=== PATIENT | male | born 1960 | race Caucasian/White ===

== ENCOUNTER 2016-08-05 09:48 | Day surgery (SDC) | payer OTHER ==
[~2016-08-05] VITALS: Ht 193 cm; Wt 158.8 kg
[~2016-08-05 09:48] MED LIST: 0.9% Sodium Chloride 1,000 ML IV PRN; ASPI-973 PO; LOSA50TA37 PO; METO-274 PO; Sodium Chloride LOK Flush 10 mL Syringe IV PRN; fentaNYL-PF 50 mCg/mL 2 mL Inj IVPUSH PRN
[2016-08-05 10:26] VITALS: BP 142/78; PULSE 96; RESP 14; O2SAT 98
[2016-08-05 11:42] VITALS: BP 150/82; PULSE 65; RESP 17; O2SAT 93
[2016-08-05 11:52] VITALS: BP 146/90; PULSE 63; RESP 17; O2SAT 95
[2016-08-05 12:03] VITALS: BP 111/69; PULSE 65; RESP 17; O2SAT 99
--- NOTE | 2016-08-06 09:23 | ENDO ---
[address] [address] ENDOSCOPY PROCEDURE PATIENT: POOJA WESTBROOK : 1960 MR#: [id number] ADMIT: 08/05/2016 JOB ID: [id number] DATE OF SERVICE: 08/06/2016 PROCEDURE PERFORMED: Colonoscopy. INDICATIONS: The patient with a history of serrated adenoma in the ascending colon. ASA CLASSIFICATION: The patient's ASA classification is II. MALLAMPATI SCORE: Mallampati score was 2. MEDICATIONS: 1. Versed 4 mg. 2. Fentanyl 100 mcg. INSTRUMENT USED: PCF-H180AL. PREPARATION QUALITY: Fair. PROCEDURE DETAILS: After informed consent was obtained, the patient was brought into the GI suite, where he was placed on oxygen via nasal cannula and monitored with continuous pulse oximeter, telemetry, and blood pressure monitoring. A time-out was performed. Then, he was placed in the left lateral decubitus position and medications were administered for sedation. Digital rectal exam with palpation of the prostate was performed which was unremarkable. The colonoscope was then inserted into the rectum and advanced under direct visualization to the cecum, which was identified by the presence of the ileocecal valve and appendiceal orifice. Once the cecum was reached, the colonoscope was withdrawn back into the rectum, as the mucosa and lumen were examined. In the rectum, retroflexion was performed. Following retroflexion, remaining air in the rectum was suctioned, and procedure was completed. FINDINGS: 1. Previously placed tattoo was identified in the ascending colon. The tattoo with relation to the scope position was at approximately 6 o'clock and the previously removed serrated adenoma was at approximately 11 o'clock. The site was inspected and there appeared to be a remnant of polyp overlying a fold. With Jumbo biopsy forceps we did remove the visualized portions of the polyp. 2. Just proximal to this, there was a diminutive polyp that was removed with a cold biopsy forceps. IMPRESSION: 1. Removal of remnant of previously partially removed polyp. 2. Ascending colon polyp. RECOMMENDATIONS: Repeat colonoscopy in two years. COMPLICATIONS: None. ESTIMATED BLOOD LOSS: Less than 5 mL. MTDD
--- NOTE | 2016-08-06 16:21 | PATH ---
SURGICAL PATHOLOGY Attending Physician:Ruben Tapia CASE STATUS: Signed Out PATIENT NAME: POOJA WESTBROOK PID: [id number] : 1960 DATE COLLECTED:08/05/2016 22:36 SPECIMEN: 1: Colon, Biopsy 2: Colon, Biopsy CLINICAL HISTORY: 1). ASCENDING POLYP X1 2). ASCENDING POLYP X1 FINAL DIAGNOSIS: 1. Ascending Colon Polyp x1: Small fragments of colonic mucosa with no diagnostic alterations. Negative for dysplasia and malignancy. 2. Ascending Polyp x1: Sessile serrated adenoma. ICD10: D12.2 GROSS DESCRIPTION: The specimen is received in two formalin filled containers labeled with the patient's name. 1). The specimen is labeled "#1 ascending #1 polyp" and consists of 3 portions of tissue which aggregate to 0.3 x 0.2 x 0.2 CM. And the specimen is entirely submitted in cassettes 1A. 2). The specimen is labeled "#2 ascending #2 polyp" and consists of multiple portions of tissue which aggregate to 0.6 0.6-0.3 CM. The specimen is entirely submitted in cassettes 2A. 08/05/2016 [facility] MICRO DESCRIPTION: Please see diagnosis. ICD-9 CODES: CPT CODES: 1: 40640 2: 62214 Electronically Signed Out Jaja Lombardo MD [facility] Pathology [facility] [address], [place] [address] Technical component performed at [facility], [address] [place] [address] Ave[address], [place], [address]
[2016-09-30] MEDS ORDERED: METO-274 PO (12:33)
[2016-09-30] MEDS ORDERED: LOSA50TA37 PO (12:33)
[2016-09-30] MEDS ORDERED: ASPI-973 PO (12:33)
== END 2016-08-05 23:59 | disposition home or self-care (01) ==
LOC: END 09:48
PROVIDERS: ATTEND Internal Medicine Gastroenterology
DX: Z12.11 Encounter for screening for malignant neoplasm of colon (principal); D12.2 Benign neoplasm of ascending colon; Z86.010 Personal history of colon polyps; I10 Essential (primary) hypertension; G47.33 Obstructive sleep apnea (adult) (pediatric); R35.0 Frequency of micturition; N40.1 Benign prostatic hyperplasia with lower urinary tract symptoms; E66.9 Obesity, unspecified; Z85.51 Personal history of malignant neoplasm of bladder; Z85.47 Personal history of malignant neoplasm of testis; Z92.3 Personal history of irradiation
CPT/HCPCS: 45380; 99153; G0500; J2250; J3010; J7030

== ENCOUNTER 2016-10-01 10:24 | Day surgery (SDC) | payer OTHER ==
[~2016-10-01] VITALS: Ht 193 cm; Wt 161.9 kg
[2016-10-01] VITALS (9 sets, daily range): BP systolic 114–140; BP diastolic 59–76; PULSE 64–118; RESP 13–16; O2SAT 94–98
[~2016-10-01 10:24] MED LIST changes: -0.9% Sodium Chloride 1,000 ML IV PRN; +Lactated Ringer's 1,000 ML IV SCH; +Levofloxacin 500 mg/100 mL D5W IV ONE; +Mitomycin Inj 40 MG in Syringe 1 EACH IRRIGATION ONE; -Sodium Chloride LOK Flush 10 mL Syringe IV PRN; -fentaNYL-PF 50 mCg/mL 2 mL Inj IVPUSH PRN
[2016-10-01] MEDS ORDERED: Dexamethasone 4 mg/mL Inj ONE (10:25)
[2016-10-01] MEDS ORDERED: Ondansetron 2 mg/mL 2 mL Inj ONE (10:25)
[2016-10-01] MEDS ORDERED: fentaNYL-PF 50 mCg/mL 2 mL Inj ONE (10:25)
[2016-10-01] MEDS ORDERED: Propofol 10,000 mCg/mL 20 mL Inj ONE (10:25)
[2016-10-01] MEDS ORDERED: MetoCLOpramide 5 mg/mL 2 mL Inj ONE (10:25)
[2016-10-01] MEDS ORDERED: Lactated Ringer's 1,000 ML IV ONE (11:45)
[2016-10-01] MEDS ORDERED: Belladonna Alk-Opium 60 mg Rectal Suppository RECTAL ONE ×2 (12:49→13:30)
[2016-10-01] MEDS ORDERED: Lactated Ringer's 1,000 ML IV SCH (12:54)
[2016-10-01] MEDS ORDERED: Lactated Ringer's 500 ML IV PRN (12:54)
[2016-10-01] MEDS ORDERED: Phenylephrine 10,000 mCg/mL Inj IVPUSH PRN (12:55)
[2016-10-01] MEDS ORDERED: Atropine 0.4 mg/mL Inj IVPUSH PRN (12:55)
[2016-10-01] MEDS ORDERED: Labetalol 5 mg/mL 4 mL Inj IV PRN (12:55)
[2016-10-01] MEDS ORDERED: EPHEDrine Sulfate 50 mg/mL Inj IVPUSH PRN (12:55)
[2016-10-01] MEDS ORDERED: Ondansetron 2 mg/mL 2 mL Inj IVPUSH PRN (12:55)
[2016-10-01] MEDS ORDERED: MetoCLOpramide 5 mg/mL 2 mL Inj IVPUSH PRN (12:55)
--- NOTE | 2016-10-01 13:14 | PCM.HPANE ---
Patient Data Surgeon Admitting Provider: Attending Provider:Dane Thompson MD Primary Care Physician:Mary Sarkar MD Other Provider:Michelle Peraltaingham Anesthesia Reason for Visit Bladder Tumor Ht/WT & BMI Height (Feet): 6 Height (Inches): 4 Weight (Kilograms): 164.84 Body Mass Index 44.00 Allergies Coded Allergies: lisinopril (Verified Adverse Reaction, Mild, cough, 08/05/16) Past Anesthesia History Anesthesia History: Denies:: Abnormal Airway, Anesthesia Reactions, Difficult Intubation, Fam Anesthesia Reaction, Fam Malignant Hypertherm, Malignant Hyperthermia Diabetes History Hx Diabetes?: No MRSA MRSA: No Medications Blood Thinner: Aspirin Hypertension Medication: Yes Home Meds Incl Beta Narcisa: Yes Reported Medications Metoprolol Succinate ER 100 Mg Tab.er.[id number] Mg PO DAILY Ref 0 09/30/16 Losartan Potassium 50 Mg Kosnme75 Mg PO DAILY 09/30/16 Aspirin 81 Mg Eiubjb69 Mg PO DAILY Ref 0 09/30/16 Discontinued Reported Medications Metoprolol Succinate ER 100 Mg Tab.er.68w254 Mg PO DAILY Ref 0 08/04/16 Losartan Potassium 50 Mg Zfpleb92 Mg PO DAILY 08/04/16 Aspirin 81 Mg Esnepf80 Mg PO DAILY Ref 0 01/08/16 History History of ENT Problems?: No HEENT History: Denies:: Abnormal Airway Difficult Intubation Dysphagia Hearing Problem Hx of Heart Problems?: Yes Cardiovascular History: Positive for:: Hypertension Denies:: AICD Atrial Fibrillation Chest Pain Pacemaker Valvular Heart Disease Hx of Respiratory Problem?: Yes Respiratory History: Positive for:: Pneumonia Use of C-PAP Machine Denies:: Asthma COPD Cough Hemoptysis Tuberculosis Hx Neurologic Problems?: No Neurological History: Denies:: CVA Multiple Sclerosis Parkinson's Disease Seizures TIA Hx of GI Problems?: Yes Gastrointestinal History: Denies:: Cirrhosis Diverticulitis Gastroesphageal Reflux Hiatal Hernia Rectal Bleeding Hx of Problems?: Yes Other Pertinent History: bladder tumor current admission problem Male Hx: Positive for:: Testicular Surgery (left testicular ca / resection) Denies:: Prostate Problems Skin History: Denies:: History Skin Disorders? Pressure Ulcers Hx Musculoskeletal Problems?: Yes Musculoskeletal History: Positive for:: Musculoskeletal Trauma (hx of left shoulder surgery) Hx of Psycho/Social Problems?: No Hx Surgeries?: Yes (L SHOULDER, L THUMB, COLONOSCOPY, TESTICULAR/BLADDER CA) Hx Any Other Health Problems?: Yes Other History: Positive for:: Cancer (testicular) Denies:: Endocrine Disease Hospitalization Thyroid Disease History Blood Transfusions: Denies:: Blood Transfusions Hx Diabetes: No Hx Alcohol Use: YesHx Substance Use: No Smoking Status: Former Smoker Have You Smoked inLast 12 mo: No (1994) Stop/Bang P-Blood Pressure: treated: Yes B- Body Mass Index > 35 kg/m2: Yes A- Age over 50: Yes N- Neck Large Circumference: Yes G- Gender Male: Yes Risk Assessment Category Category 1A: Patient has history of documented sleep apnea, and HAS NOT received any narcotic, sedative or anesthesia administration during this stay. Category 1B: Patient has history of documented sleep apnea, and HAS received any narcotic , sedative or anesthesia administration during this stay Category 2: Patient has SUSPECTED Obstructive Sleep Apnea, and HAS received any narcotic , sedative or anesthesia administration during this stay. Category 3: Patient has SUSPECTED Obstructive Sleep Apnea and HAS NOT received narcotic, sedative or anesthesia administration during this stay. Category 4: Outpatient in Procedural Areas with known sleep apnea or who screen positive for High Risk via the STOP/BANG questionnaire. Exam Exam General Appearance: Alert, Oriented X3, Cooperative, No Acute Distress HEENT/AIRWAY: MP 2, Neck Movement (FROM, large neck circumferene), Mouth Opening (3 FBMO) Lungs: Clear to Auscultation, Normal Air Movement Heart: Exam Unremarkable, Regular Rate/Rhythm, No Murmurs/Rubs/Gallops Plan Impression Patient chart reviewed, patient interviewed and anesthestic plan with risks, benefits, and alternatives discussed, and informed consent obtained. NPO Status: > 8 hrs ASA Physical Status: ASA3 Severe Disease (BMI 43) Anesthetic Plan: GA Bene/Risks/Altern/Consents: Yes HP Complete Prior to Induction: Yes Other Doesn't want spinal Lorenzo Mathias MD Oct 01, 2016 10:57
[2016-10-01] MEDS: fentaNYL-PF 50 mCg/mL 2 mL Inj IVPUSH PRN ×3 (14:08→14:24)
--- NOTE | 2016-10-01 14:24 | PCM.SURGPO ---
Immediate Operative Note Date of Surgery: Oct 01, 2016 Pre Operative Diagnosis Bladder tumors Post Operative Diagnosis Bladder tumors Procedure Cystoscopy, transurethral resection of bladder tumors (2-5cm), and Mitomycin intravesical instillation Surgeon and Product Assembler Surgeon: Dane Thompson MD Assistants: None Findings Cystoscopy revealed an approx. 1-1.5cm papillary bladder tumor on L inferoposterior wall and an approx. 1cm papillary bladder tumor on anterior wall. Bladder tumors were resected using bipolar loop electrocautery. Mitomycin intravesical instillation was performed at the end of the case. Complications There were no periprocedural complications identified. Surgical Specimen Removed: Yes Specimen sent to Pathology: Yes Surgical Specimen description: L inferoposterior wall bladder tumor, anterior wall bladder tumor Anesthetic Administered: GA Grafts, Implants: Other (18F Gibson catheter clamped) Output, Estimated Blood Loss: <5 Blood Admin during surgery: No Additional information Patient to be discharged home when stable, to return for nursing visit in 4-5 days for trial of void and to return to see me in the office in 1.5 weeks for post-op visit. Dane Thompson MD Oct 01, 2016 14:23
--- NOTE | 2016-10-01 14:34 | PCM.DISURG ---
Surgical Discharge Instruction Date of Service Oct 01, 2016 Dates of Hospitalization Date of Hospital Admission Oct 01, 2016 Providers Admitting Physician: Dane Thompson MD Primary Care Physician: Mary Sarkar MD Attending Physician: Dane Thompson MD Discharge Diagnosis Discharge Diagnosis Bladder tumors Post Operative diagnosis Bladder tumors Diet Discharge Diet: No restrictions, Other (Drink at least 10-12 8oz. glasses (3 liters) of fluids per day as long as there is blood in the urine) Activity Discharge Activity-General: No driving while taking narcotic, Other (No strenuous exercise/activity or moderate or heavy lifting (>10 lbs.) for 3 days) Dressing and Incisional Care Hygiene: May shower Follow Up Plan Follow Up Plan 1) Urology nursing visit in 4-5 days for trial of void (early-mid AM appt.) 2) Office visit with Dr. Thompson in 1.5 weeks Follow-up Provider (F9): Dane Thompson MD Call your provider for: Fever, Chills, Vomiting, Other (Pain uncontrolled by pain medications, non-draining Gibson catheter) Dane Thompson MD Oct 01, 2016 14:34
[2016-10-01] MEDS ORDERED: HYDROcodone-APAP 5-325 mg Tablet PO PRN (14:40)
--- NOTE | 2016-10-01 14:48 | PCM.ANEP1 ---
Post Anesthesia Phase 1 PACU Phase 1 Assessment Date of Service: Oct 01, 2016 Vital Signs Vital Signs Date Time Temp Pulse Resp B/P Pulse Ox O2 Delivery O2 Flow Rate FiO2 10/01/16 14:16 69 15 118/60 96 Nasal Cannula 2 10/01/16 14:05 66 14 120/70 94 Nasal Cannula 3 10/01/16 14:00 64 13 119/73 95 Nasal Cannula 3 10/01/16 13:55 65 14 114/69 95 Nasal Cannula 3 10/01/16 13:50 36.4 66 15 118/59 96 Nasal Cannula 3 10/01/16 11:19 35.9 64 16 140/76 98 Anesthetic Administered: GA Level of Alertness: Awake, talking CHAVEZ's with Equal Strength: Yes Pain: No Nausea or Vomiting: No Oxygen Delivery: Simple Mask Lungs: Clear to Auscultation, Normal Air Movement Dermatome Level: Full Sensation Lorenzo Mathias MD Oct 01, 2016 14:48
--- NOTE | 2016-10-01 14:48 | PCM.ANEP2 ---
Post Anesthesia Evaluation ASA/CMS Post Anesthesia VS in Patient's Normal Range?: Yes Resp Stable; Airway Patent?: Yes CV Function & Hydration Stable: Yes Mental Status Recovered?: Yes Pain control Satisfactory?: Yes N/V Control Satisfactory?: Yes Lorenzo Mathias MD Oct 01, 2016 14:48
--- NOTE | 2016-10-02 14:58 | OP ---
[address] [address] OPERATIVE REPORT PATIENT: POOJA WESTBROOK : 1960 MR#: [id number] ADMIT: 10/01/2016 JOB ID: [id number] DATE OF SURGERY: 10/01/2016 SURGEON: Dane Thompson MD. PREOPERATIVE DIAGNOSIS(ES): Bladder tumors. POSTOPERATIVE DIAGNOSIS(ES): Bladder tumors. PROCEDURE: Cystoscopy, transurethral resection of bladder tumors (2-5 cm), and Mitomycin intravesical instillation. FOUR H AGENT: None. ANESTHESIA: General. ESTIMATED BLOOD LOSS: Less than 5 mL. SPECIMENS: Left inferoposterior wall bladder tumor, anterior wall bladder tumor. DRAINS: 18 -Irish Gibson catheter clamped. COMPLICATION: None. CONDITION: Stable. FINDINGS: Cystoscopy revealed an approximately 1-1.5 cm papillary bladder tumor on the left inferoposterior wall and an approximately 1 cm papillary bladder tumor on the anterior wall. Bladder tumors were resected using bipolar loop electrocautery. Mitomycin intravesical instillation was performed at the end of the case. INDICATIONS: The patient is a 56-year-old male with history of bladder cancer found on office cystoscopy to have bladder tumors. Patient now presents for cystoscopy, transurethral resection of bladder tumors, and Mitomycin intravesical instillation. PROCEDURE: The patient was brought to the operating room and placed supine on the operating room table. The patient was given Levaquin IV antibiotics. Sequential compression device boots were placed. General anesthesia was administered. The patient was brought down into dorsal lithotomy position. Patient was prepped and draped in standard surgical fashion. A 26-Irish continuous flow resectoscope was placed into the distal urethra without difficulty. Cystoscopy revealed normal distal urethra, bilateral ureteral orifices in normal position, mild bilobar prostatic hypertrophy, mild to moderately trabeculated bladder, no bladder calculi, an approximately 1-1.5 cm papillary bladder tumor on the left inferoposterior wall, and an approximately 1 cm papillary bladder tumor on the anterior wall. Both bladder tumors were resected in their entirety using Thunderbeat bipolar loop electrocautery and sent to Pathology for permanent specimen. The bases of the bladder tumor resected areas including normal surrounding bladder mucosa were fulgurated using bipolar loop electrocautery. Excellent hemostasis was achieved. No evidence for bladder perforation was seen. Bilateral ureteral orifices were seen to be intact and well preserved at the end of the case. The continuous-flow resectoscope was removed from the patient. An 18-Irish Gibson catheter was placed through the urethra and into the bladder. Gibson catheter balloon was inflated with 10 mL sterile water. The bladder was allowed to completely drain via the Gibson catheter initially. After the bladder was drained, then Mitomycin solution was instilled into the bladder via the Gibson catheter, thus performing Mitomycin intravesical instillation at the end of the case. The Gibson catheter was clamped. Skin was cleaned and dried. The patient was placed in supine position. The patient was awakened from general anesthesia and transferred to the recovery room in stable condition. The patient tolerated the procedure well. The Gibson catheter was unclamped after a period of one hour allowing the Mitomycin solution to drain out of the patient's bladder. Plan is for the patient to be discharged home when stable, to return for a nursing visit in 4-5 days for a trial of void, and to return to see me in the office in 1-1/2 weeks for a postoperative visit. MARLEN
--- NOTE | 2016-10-13 12:00 | PATH ---
SURGICAL PATHOLOGY Attending Physician:Dane Thompson MD CASE STATUS: Signed Out * Amended * PATIENT NAME: POOJA WESTBROOK PID: [id number] : 1960 DATE COLLECTED:10/01/2016 00:00 SPECIMEN: 1: Bladder, Biopsy 2: Bladder, Biopsy CLINICAL HISTORY: BLADDER TUMOR 1). ANTERIOR WALL BLADDER TUMOR 2). LEFT INFERIOR POSTERIOR WALL BLADDER TUMOR FINAL DIAGNOSIS: 1. Anterior Wall Bladder Tumor, Biopsy: Detached, superficial portions of tangentially oriented urothelium with electrocautery artifact. No definite urothelial dysplasia identified. Please see comment. No invasive tumor identified. 2. Left Inferior Posterior Wall Bladder Tumor, Biopsy: Portions of bladder wall with mild acute and chronic cystitis, associated cystitis glandularis, and focal mucosal erosion. Urothelium with focal reactive changes. Negative for dysplasia and neoplasia. ICD10: Z85.51 This case was reviewed and interpreted by Dr. Dolores Johnson. The final diagnosis is unchanged. This amendment is issued in order for the report to cross the interface and be available in the hospital electronic medical record. NOTE: Part 1: The superficial, detached, tangentially oriented portions of urothelium have features that are focally obscured by electrocautery artifact. Deeper levels through the block are noncontributory. If clinical concern for neoplasia persists, additional sampling could be considered, if clinically appropriate. GROSS DESCRIPTION: The specimen is received in two formalin filled containers labeled with the patient's name. 1). The specimen is sublabeled "anterior wall bladder tumor" and consists of 2 portions of tissue which aggregate to 0.4 x 0.3 x 0.2 CM. The specimen is entirely submitted in cassette 1A. 2). The specimen is sublabeled "left inferior posterior wall bladder tumor" and consists of multiple portions of tissue which aggregate to 0.7 x 0.6 x 0.3 CM. The specimen is entirely submitted in cassette 2A. 10/02/2016 [facility] ICD-9 CODES: CPT CODES: 1: 46937 2: 81702 PROCEDURE/ADDENDA: Addendum SPI Addendum Diagnosis SLIDES REVIEWED AT [facility] by Mariya Lawson MD,PhD requested by Dr. Dolores Johnson [facility] Pathology [facility], [place], [place]; [phone] (10/01/2016) 1) Anterior wall bladder tumor, biopsy: - Detached fragments of benign urothelium with cautery artifact. - No definite dysplasia or neoplasia identified. See comment. - Muscularis propria absent. 2) Left inferior posterior bladder tumor, biopsy: - Fragments of bladder with mildly active chronic cystitis, mucosal erosions, regenerative urothelium with focal hyperplasia and reactive atypia. - No definite dysplasia or neoplasia identified. - Muscularis propria present. COMMENT: "Thank you for sending us this challenging case in consultation. We agree with your impression that there is no definite neoplasm. A small fragment of detached, folded and cauterized urothelium in part1 is obscured by artifact, and unable to be assessed for presence of papillary neoplasm. In part 2 we could appreciate vague polypoid architecture with stromal edema, inflammation, smooth muscle hyperplasia and reactive congested vasculature. These features, combined with focally eroded and thickened reactive urothelium, could be seen in polypoid and papillary cystitis. " Dr. Casi Pitts has reviewed this case with agreement. Addendum Comment Please see [facility] report [id number] for complete details. Electronically Signed Out Magda Cruz MD AMENDMENT(S): Amended: 10/13/2016 by Jaja Shay Reason:Miscellaneous The final diagnosis is unchanged. This amendment is issued in order for the report to cross the interface and be available in the hospital electronic medical record. Previous Signout Date: 10/06/2016 Electronically Signed Out Magda Cruz MD [facility] Pathology [facility]., [address], [place] [address] Technical component performed at [facility], [facility] [address], [place], [address]
== END 2016-10-01 23:59 | disposition home or self-care (01) ==
LOC: SAS 10:24
PROVIDERS: ATTEND Urology
DX: D30.3 Benign neoplasm of bladder (principal); N40.1 Benign prostatic hyperplasia with lower urinary tract symptoms; R33.9 Retention of urine, unspecified; R35.0 Frequency of micturition; R35.1 Nocturia; R39.15 Urgency of urination; E29.1 Testicular hypofunction; Z85.51 Personal history of malignant neoplasm of bladder; Z85.47 Personal history of malignant neoplasm of testis; Z92.3 Personal history of irradiation; I10 Essential (primary) hypertension; G47.33 Obstructive sleep apnea (adult) (pediatric); E66.9 Obesity, unspecified; Z68.41 Body mass index [BMI] 40.0-44.9, adult; Z79.82 Long term (current) use of aspirin
CPT/HCPCS: 52235; J1100; J1885; J2250; J2405; J2765; J3010; J7120